=== PATIENT | male | born 1975 | race Caucasian/White ===

== ENCOUNTER 2018-06-17 17:24 | Emergency (ER) | payer BC, SELFPAY ==
[2018-06-17 17:26] VITALS: BP 158/95; PULSE 98; RESP 18; TEMP 36.5; O2SAT 96
--- NOTE | 2018-06-17 17:35 | DI.RAD_ITS ---
SYMPTOM/DIAGNOSIS: DEFORMITY, ? FX LEFT CLAVICLE: There is a comminuted fracture of the mid to distal clavicle. There is displacement of fracture fragments. The AC joint and glenohumeral joint are grossly intact. IMPRESSION: Mildly comminuted displaced clavicle fracture.
--- NOTE | 2018-06-17 17:35 | W.ED.GENAD ---
Discharge Plan Disposition Patient Disposition: HOME Condition: Good Discharge Details Chief Complaint: Orthopedic Clinical Impression: Closed fracture of left clavicle Primary Care Provider: Sruthi,Local ED Provider: Marcio Landin Home Meds and New Rx's Prescriptions: New hydrocodone-acetaminophen [[place]] 7.5-325 mg tablet 1 tab PO Q6H Qty: 5 RF: 0 No Action Humira Pen 40 mg/0.8 mL Pen Injector Kit RF: 0 allopurinol 100 mg Tablet 100 mg PO BID RF: 0 Discharge Instructions Instructions: Clavicle Fracture (ED) Additional Instructions: Please keep the sling on at all times. Please take 1000 mg of Tylenol every 6 hours and 800 mg of ibuprofen every 6 hours for improvement of your pain. Please take [place] only as needed. Please do not take it with Tylenol as it does have Tylenol in it. If you notice any worsening of your symptoms, or any new symptoms such as vomiting, diarrhea, fever, chills, shortness of breath, chest pain, numbness or tingling, change in color for your hand, change in temperature for your hand,, weakness, or fainting , please return immediately to the emergency department for reevaluation. Please follow up with your primary care provider and your orthopedic surgeon as soon as possible for reassessment and reevaluation. As always, it was a pleasure participating in your medical care today. Medical Decision Making This is a 42-year-old male with past medical history of psoriatic arthritis who presents for trauma to his left clavicle. Patient was walking in a parking lot/road when he slipped and landed on his left shoulder. He heard an audible pop. He had notable pain deformity in his left clavicle and came to the ER for further eval. Physical exam demonstrates no evidence of neurovascular compromise with brisk capillary refill, normal radial pulses and normal sensation throughout. There is notable deformity of the left clavicle. X-ray does show evidence of notably fractured clavicle with mild to moderate angulation, and a component of a comminuted process at the lateral aspect of the break. With no signs of neurovascular compromise, and the patient otherwise well-appearing and feeling well, we will recommend continued Tylenol and Lidoderm patch. We will contact the orthopedic surgeon preparation room worker to review the case secondary to the comminuted component. We will place the patient in a sling. 6:46 PM Patient has tolerated the sling well. Pain is controlled at this time. I did contact Dr. Enriquez and discussed the case with him. I reviewed the images, the patient's current clinical presentation, and physical exam findings including the current radiographic image, and his recommendation with these findings at this time is that patient be placed in a sling, with close follow-up in 1 week. I relayed this to the patient. With continued exam showing no neurovascular compromise, I feel he can be safely discharged home with close follow-up with his PCP and orthopedic surgeon in [place]. I have extensively reviewed the treatment plan and discharge instructions with the patient and their family. I have addressed all patient concerns at this time. The patient and family was made aware of what symptoms to monitor for that would warrant a return to the emergency department. Discussed the plan with the patient and family, they demonstrate verbal understanding and agreement with our assessment and plan at this time. COMPARISON: No relevant prior studies available. FINDINGS: Bones/joints: Comminuted fracture mid to distal left clavicle. Soft tissues: Normal. IMPRESSION: Comminuted fracture mid to distal left clavicle. Thank you for allowing us to participate in the care of your patient. Dictated and Authenticated by: Zbigniew Cardenas MD [facility] General Date/Time Provider Initiated Documentation: 06/17/18 17:34. [facility] Narrative: This is a 42-year-old male with no significant past medical history except for psoriatic arthritis who takes Humira and allopurinol, who presents today for left-sided clavicular/shoulder pain. The patient states that he had a pretty good day of skiing, and then while he was walking in the parking lot he slipped and landed on his left shoulder. He had notable pain in the area of his clavicle. He did take ibuprofen at the time of the event. Pain is made worse with movement and palpation of the clavicle, improved by the ibuprofen. He denies any numbness tingling or weakness. He denies any headache, neck pain, chest pain or abdominal pain. He denies any other modifying factors at this time. Related Data Home Medications Medication Instructions Recorded Confirmed adalimumab [Humira Pen] 06/17/18 allopurinol 100 mg PO BID 06/17/18 06/17/18 hydrocodone-acetaminophen [[place]] 1 tab PO Q6H #5 tab 06/17/18 Previous Rx's Medication Instructions Recorded hydrocodone-acetaminophen [[place]] 1 tab PO Q6H #5 tab 06/17/18 Allergies Allergy/AdvReac Type Severity Reaction Status Date / Time No Known Allergies Allergy Unverified 06/17/18 17:29 General Stated Complaint: Orthopedic RUBIA: 4 Review of Systems Review of Systems All systems reviewed & are unremarkable except as noted in HPI and below Exam Narrative Exam Narrative: 1.Const: Well-nourished, Well-developed, appearing stated age 2.Eyes: PERRL, no conjunctival injection, and symmetrical lids. 3.ENT: Atraumatic external nose and ears. Moist MM. Neck: Symmetric, trachea midline, No thyromegaly. There is no evidence of raccoon eyes, pena sign, CSF rhinorrhea, mastoid tenderness, cranial crepitus, hemotympanum, exophthalmos, or hyphema. Patient demonstrates intact dentition with no signs of tooth avulsion or fracture, no signs of jaw deformity, no evidence of a LeFort's fracture, with an intact palate, nose and orbital region. There is no evidence of a nasal septal hematoma. No proptosis. Jaw closes symmetrically. Airway is clear. 4.CVS: Regular rate and rhythm, Normal s1 and s2. No murmurs, carotid bruits, rubs, or gallops. Radial pulses 2+ bilaterally and symmetric. Dorsalis pedis pulses 2+ bilaterally and symmetric. 2+ capillary refill. No evidence of distant heart sounds. No extremity edema. No evidence of gross hemorrhage. 5.RESP: Airway clear, no obstructions. No abrasions or ecchymosis. Chest movement symmetric with respirations. No chest wall tenderness. Trachea midline. No crepitus. No step offs. No paradoxical movements. Lungs are clear to auscultation bilaterally. No rales, rhonchi, wheezing or stridor. Breath sound symmetric. No Sucking chest wounds. No clinical evidence of significant chest trauma. 6.GI: Soft, nondistended, nontender. Bowel tones normoactive. No masses or organomegaly. No ecchymosis or abrasions. No periumbilical ecchymosis or seatbelt sign. No flank or CVA tenderness. No clinical signs of significant trauma. No clinical evidence of significant abdominal trauma. 7.MSK: No gross discolorations or lesions.All compartments of upper and lower extremities are soft. Vascular exam demonstrates brisk capillary refill and intact pulses in all extremities. Patient demonstrates notable deformity over the left clavicle. No evidence of perforation to the skin or open fracture. Notable tenderness over the mid component of the clavicle. Exam of the shoulder demonstrates no significant shoulder pain, no scapular pain, no pain in the humerus or arm. Exam of the arm demonstrates brisk capillary refill, +2 radial pulse bilaterally, normal movement of the wrist and forearm. Flexion extension at the elbow is limited secondary to referred pain in the clavicle. No midline cervical spine tenderness, no signs of pain or tenderness on the scalp. No other pain or tenderness on the chest abdomen or pelvis. Symmetrically palpable radial and ulnar pulses. Capillary refill <2 seconds to all digits. Intact sensation to light touch of the radial, median and ulnar nerves demonstrated by testing in the dorsal web space of the thumb, the distal palmar aspect of the index finger, and the lateral surface of the fifth finger. 2 point discrimination intact to 5mm (up to 6mm can be normal in digits 3-5) of discrimination in the affected digit. Intact motor function of the radial, median and ulnar nerves demonstrated by strength of extension of the isolated distal joint of the index finger, hand assistant director of admissions, and spreading of the 2nd through 5th digits. Intact recurrent median nerve as demonstrated by ability to move thumb fully through opposition, abduction and flexion. No snuffbox tenderness. 8.Skin: Warm, Dry. No rashes or lesions. 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 Sensation grossly intact, no focal neurologic deficits. 10.Psych: (AAO) x3. Appropriate mood and affect Course Vital Signs Temperature 36.5 C 06/17/18 17:26 Pulse 98 H 06/17/18 17:26 Respiratory Rate 18 06/17/18 17:26 Blood Pressure 158/95 H 06/17/18 17:26 Pulse Oximetry 96 06/17/18 17:26 Temperature 36.5 C 06/17/18 17:26 Pulse 98 H 06/17/18 17:26 Respiratory Rate 18 06/17/18 17:26 Blood Pressure 158/95 H 06/17/18 17:26 Blood Pressure Position Sitting 06/17/18 17:26 Pulse Oximetry 96 06/17/18 17:26 Oxygen Delivery Method Room Air 06/17/18 17:26 Oxygen Flow Rate 0 06/17/18 17:26
[2018-06-17] MEDS: Lidocaine 5% Patch 1 PATCH (17:40)
[2018-06-17] MEDS: Acetaminophen 500 MG TAB (17:40)
--- NOTE | 2018-06-17 17:45 | ED.GENADUL_ITS ---
Discharge Plan Disposition Patient Disposition: HOME Condition: Good Discharge Details Chief Complaint: Orthopedic Clinical Impression: Closed fracture of left clavicle Primary Care Provider: Sruthi,Local ED Provider: Marcio Landin Home Meds and New Rx's Prescriptions: New hydrocodone-acetaminophen [[place]] 7.5-325 mg tablet 1 tab PO Q6H Qty: 5 RF: 0 No Action Humira Pen 40 mg/0.8 mL Pen Injector Kit RF: 0 allopurinol 100 mg Tablet 100 mg PO BID RF: 0 Discharge Instructions Instructions: Clavicle Fracture (ED) Additional Instructions: Please keep the sling on at all times. Please take 1000 mg of Tylenol every 6 hours and 800 mg of ibuprofen every 6 hours for improvement of your pain. Please take [place] only as needed. Please do not take it with Tylenol as it does have Tylenol in it. If you notice any worsening of your symptoms, or any new symptoms such as vomiting, diarrhea, fever, chills, shortness of breath, chest pain, numbness or tingling, change in color for your hand, change in temperature for your hand,, weakness, or fainting , please return immediately to the emergency department for reevaluation. Please follow up with your primary care provider and your orthopedic surgeon as soon as possible for reassessment and reevaluation. As always, it was a pleasure participating in your medical care today. Medical Decision Making This is a 42-year-old male with past medical history of psoriatic arthritis who presents for trauma to his left clavicle. Patient was walking in a parking lot/road when he slipped and landed on his left shoulder. He heard an audible pop. He had notable pain deformity in his left clavicle and came to the ER for further eval. Physical exam demonstrates no evidence of neurovascular compromise with brisk capillary refill, normal radial pulses and normal sensation throughout. There is notable deformity of the left clavicle. X-ray does show evidence of notably fractured clavicle with mild to moderate angulation, and a component of a comminuted process at the lateral aspect of the break. With no signs of neurovascular compromise, and the patient otherwise well-appearing and feeling well, we will recommend continued Tylenol and Lidoderm patch. We will contact the orthopedic surgeon transmission operator to review the case secondary to the comminuted component. We will place the patient in a sling. 6:46 PM Patient has tolerated the sling well. Pain is controlled at this time. I did contact Dr. Enriquez and discussed the case with him. I reviewed the images, the patient's current clinical presentation, and physical exam findings including the current radiographic image, and his recommendation with these findings at this time is that patient be placed in a sling, with close follow-up in 1 week. I relayed this to the patient. With continued exam showing no neurovascular compromise, I feel he can be safely discharged home with close follow-up with his PCP and orthopedic surgeon in [place]. I have extensively reviewed the treatment plan and discharge instructions with the patient and their family. I have addressed all patient concerns at this time. The patient and family was made aware of what symptoms to monitor for that would warrant a return to the emergency department. Discussed the plan with the patient and family, they demonstrate verbal understanding and agreement with our assessment and plan at this time. COMPARISON: No relevant prior studies available. FINDINGS: Bones/joints: Comminuted fracture mid to distal left clavicle. Soft tissues: Normal. IMPRESSION: Comminuted fracture mid to distal left clavicle. Thank you for allowing us to participate in the care of your patient. Dictated and Authenticated by: Zbigniew Cardenas MD [facility] General Date/Time Provider Initiated Documentation: 06/17/18 17:34 . [facility] Narrative: This is a 42-year-old male with no significant past medical history except for psoriatic arthritis who takes Humira and allopurinol, who presents today for left-sided clavicular/shoulder pain. The patient states that he had a pretty good day of skiing, and then while he was walking in the parking lot he slipped and landed on his left shoulder. He had notable pain in the area of his clavicle. He did take ibuprofen at the time of the event. Pain is made worse with movement and palpation of the clavicle, improved by the ibuprofen. He denies any numbness tingling or weakness. He denies any headache, neck pain, chest pain or abdominal pain. He denies any other modifying factors at this time. Related Data Home Medications Medication Instructions Recorded Confirmed adalimumab [Humira Pen] 06/17/18 allopurinol 100 mg PO BID 06/17/18 06/17/18 hydrocodone-acetaminophen [[place]] 1 tab PO Q6H #5 tab 06/17/18 Previous Rx's Medication Instructions Recorded hydrocodone-acetaminophen [[place]] 1 tab PO Q6H #5 tab 06/17/18 Allergies Allergy/AdvReac Type Severity Reaction Status Date / Time No Known Allergies Allergy Unverified 06/17/18 17:29 General Stated Complaint: Orthopedic RUBIA: 4 Review of Systems Review of Systems All systems reviewed & are unremarkable except as noted in HPI and below Exam Narrative Exam Narrative: 1.Const: Well-nourished, Well-developed, appearing stated age 2.Eyes: PERRL, no conjunctival injection, and symmetrical lids. 3.ENT: Atraumatic external nose and ears. Moist MM. Neck: Symmetric, trachea midline, No thyromegaly. There is no evidence of raccoon eyes, pena sign, CSF rhinorrhea, mastoid tenderness, cranial crepitus, hemotympanum, exophthalmos, or hyphema. Patient demonstrates intact dentition with no signs of tooth avulsion or fracture, no signs of jaw deformity, no evidence of a LeFort's fracture, with an intact palate, nose and orbital region. There is no evidence of a nasal septal hematoma. No proptosis. Jaw closes symmetrically. Airway is clear. 4.CVS: Regular rate and rhythm, Normal s1 and s2. No murmurs, carotid bruits, rubs, or gallops. Radial pulses 2+ bilaterally and symmetric. Dorsalis pedis pulses 2+ bilaterally and symmetric. 2+ capillary refill. No evidence of distant heart sounds. No extremity edema. No evidence of gross hemorrhage. 5.RESP: Airway clear, no obstructions. No abrasions or ecchymosis. Chest movement symmetric with respirations. No chest wall tenderness. Trachea midline. No crepitus. No step offs. No paradoxical movements. Lungs are clear to auscultation bilaterally. No rales, rhonchi, wheezing or stridor. Breath sound symmetric. No Sucking chest wounds. No clinical evidence of significant chest trauma. 6.GI: Soft, nondistended, nontender. Bowel tones normoactive. No masses or organomegaly. No ecchymosis or abrasions. No periumbilical ecchymosis or seatbelt sign. No flank or CVA tenderness. No clinical signs of significant trauma. No clinical evidence of significant abdominal trauma. 7.MSK: No gross discolorations or lesions.All compartments of upper and lower extremities are soft. Vascular exam demonstrates brisk capillary refill and intact pulses in all extremities. Patient demonstrates notable deformity over the left clavicle. No evidence of perforation to the skin or open fracture. Notable tenderness over the mid component of the clavicle. Exam of the shoulder demonstrates no significant shoulder pain, no scapular pain, no pain in the humerus or arm. Exam of the arm demonstrates brisk capillary refill, +2 radial pulse bilaterally, normal movement of the wrist and forearm. Flexion extension at the elbow is limited secondary to referred pain in the clavicle. No midline cervical spine tenderness, no signs of pain or tenderness on the scalp. No other pain or tenderness on the chest abdomen or pelvis. Symmetrically palpable radial and ulnar pulses. Capillary refill <2 seconds to all digits. Intact sensation to light touch of the radial, median and ulnar nerves demonstrated by testing in the dorsal web space of the thumb, the distal palmar aspect of the index finger, and the lateral surface of the fifth finger. 2 point discrimination intact to 5mm (up to 6mm can be normal in digits 3-5) of discrimination in the affected digit. Intact motor function of the radial, med shayna and ulnar nerves demonstrated by strength of extension of the isolated distal joint of the index finger, hand ict customer support officer, and spreading of the 2nd through 5th digits. Intact recurrent median nerve as demonstrated by ability to move thumb fully through opposition, abduction and flexion. No snuffbox tenderness. 8.Skin: Warm, Dry. No rashes or lesions. 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 Sensation grossly intact, no focal neurologic deficits. 10.Psych: (AAO) x3. Appropriate mood and affect Course Vital Signs Temperature 36.5 C 06/17/18 17:26 Pulse 98 H 06/17/18 17:26 Respiratory Rate 18 06/17/18 17:26 Blood Pressure 158/95 H 06/17/18 17:26 Pulse Oximetry 96 06/17/18 17:26 Temperature 36.5 C 06/17/18 17:26 Pulse 98 H 06/17/18 17:26 Respiratory Rate 18 06/17/18 17:26 Blood Pressure 158/95 H 06/17/18 17:26 Blood Pressure Position Sitting 06/17/18 17:26 Pulse Oximetry 96 06/17/18 17:26 Oxygen Delivery Method Room Air 06/17/18 17:26 Oxygen Flow Rate 0 06/17/18 17:26
[2018-06-17] MEDS: HYDROcodone 5/Acetaminophen 325 TAB PO (18:55)
== END 2018-06-17 18:55 | disposition home or self-care (01) ==
PROVIDERS: Emergency Provider Student in an Organized Health Care Education/Training Program
DX: S42.022A Displaced fracture of shaft of left clavicle, initial encounter for closed fracture (principal); W00.0XXA Fall on same level due to ice and snow, initial encounter
CPT/HCPCS: 99283; 73000; L3650